=== PATIENT | female | born 1970 | race Caucasian/White ===

== ENCOUNTER 2021-12-09 09:43 | Outpatient (CLI) | payer OTHER ==
[2021-12-09 15:07] LABS: CHOL/HDL RATIO 3.9 (<4.4); CHOLESTEROL 215 mg/dL; GLUCOSE 86 mg/dL (70-100); HDL CHOLESTEROL 55 mg/dL; LDL CHOLESTEROL,CALCULATED 151 mg/dL; LDL/HDL RATIO 2.7 (<4.4); TRIGLYCERIDES 45 mg/dL; VLDL CHOLESTEROL 9 mg/dL
== END 2021-12-09 09:44 | disposition home or self-care (01) ==
LOC: LAB.S 09:43
DX: Z01.419 Encounter for gynecological examination (general) (routine) without abnormal findings (principal)
CPT/HCPCS: 36415; 80061; 82947; 83721